=== PATIENT | male | born 1995 | race Asian ===

== ENCOUNTER 2019-01-06 14:57 | Emergency (ER) | payer SELFPAY ==
[~2019-01-06] VITALS: Ht 175.3 cm; Wt 63.5 kg
[2019-01-06 15:22] VITALS: Ht 175.3 cm; Wt 63.5 kg
[2019-01-06 15:33] LABS: BASOPHIL % 0.5 % (0-2); PLATELET COUNT 264 x10^3mcL (130-400); RED CELL DISTRIBUTION WIDTH 12.9 % (11.5-14.5)
[2019-01-06 15:44] LABS: CALCIUM 9.1 mg/dL (8.5-10.1); CARBON DIOXIDE 26.5 mmol/L (21-32); CHLORIDE SERUM 109 mmol/L (98-107); CREATININE SERUM 0.9 mg/dL (0.7-1.3); GFR1 > 60 mL/min; GLUCOSE SERUM 108 mg/dL (74-106); POTASSIUM SERUM 3.2 mmol/L (3.5-5.1); SODIUM SERUM 146 mmol/L (136-145)
[2019-01-06 15:46] LABS: ALBUMIN 3.9 g/dL (3.4-5.0); ALKALINE PHOSPHATASE 86 U/L (46-116); ALT/SGPT 26 U/L (16-63); AST/SGOT 11 U/L (15-37); BILIRUBIN TOTAL 0.9 mg/dL (0.20-1.00); TOTAL PROTEIN, SERUM 6.8 g/dL (6.4-8.2)
[2019-01-06 15:47] LABS: CHOLESTEROL 113 mg/dL (<200)
[2019-01-06 17:09] LABS: AMPHETAMINE QUAL UR POSITIVE (See below)
[2019-01-06 18:35] VITALS: BP 118/69
== END 2019-01-06 18:35 | disposition home or self-care (01) ==
LOC: ED 14:57
PROVIDERS: Specialist
DX: F19.10 Other psychoactive substance abuse, uncomplicated (principal)
CPT/HCPCS: 36415; G0480; J7030

== ENCOUNTER 2019-02-02 00:01 | Inpatient (IN) | payer MEDICAID ==
[~2019-02-02] VITALS: Ht 177.8 cm; Wt 51.7 kg
[2019-02-02 00:17] VITALS: Ht 177.8 cm; Wt 51.7 kg
--- NOTE | 2019-02-02 00:22 | NUR ---
PT BIBA TO BED 5 VIA GURNEY. PER MEDIC FAMILY CALLED 911 FOR PT ALOC, FAMILY REPORTS PT BASELINE IS AAOX4 AND FAMILY UNAWARE OF LAST TIME PT WAS SEEN AT BASELINE. PER MEDIC PT HAS HISTORY OF DRUG USE AND SCHIZOPRENIA AND PT NOT COMPLIANT WITH MEDICATIONS. 20 G IV TO THE L AC STARTED [employer] COORDIN[employer]. BLOOD GLUCOSE IN ROUTE WAS 92. WHEN MEDIC ARRIVED PT ALOC, AWAKE AND UNABLE TO SPEAK. ON ARRIVAL PT AWAKE AND TRACKING WITH EYES. PT DOES NOT RESPOND TO QUESTIONS. WHILE ASSESSING FOR ALERTNESS AND ORIENTATION BUT LAUGHS. PT COOPERATIVE AND FOLLOWS ALL COMMANDS.
[2019-02-02 01:07] LABS: BASOPHIL % 0.7 % (0-2); PLATELET COUNT 252 x10^3mcL (130-400); RED CELL DISTRIBUTION WIDTH 12.1 % (11.5-14.5)
[2019-02-02 01:10] LABS: CALCIUM 9.2 mg/dL (8.5-10.1); CHLORIDE SERUM 107 mmol/L (98-107); CREATININE SERUM 0.6 mg/dL (0.7-1.3); GFR1 > 60 mL/min; GLUCOSE SERUM 91 mg/dL (74-106); POTASSIUM SERUM 3.5 mmol/L (3.5-5.1); SODIUM SERUM 142 mmol/L (136-145)
[2019-02-02 01:15] LABS: ALBUMIN 3.7 g/dL (3.4-5.0); ALKALINE PHOSPHATASE 80 U/L (46-116); ALT/SGPT 12 U/L (16-63); AST/SGOT 7 U/L (15-37); BILIRUBIN TOTAL 0.53 mg/dL (0.20-1.00); TOTAL PROTEIN, SERUM 6.4 g/dL (6.4-8.2)
[2019-02-02 01:29] LABS: FREE T4 1.14 ng/dL (0.76-1.46)
--- NOTE | 2019-02-02 01:45 | NUR ---
PT LAYING IN BED TO POSITION OF COMFORT. PT AWAKE AND REPONDS TO NAME BY OPENING EYES AND LAUGHING. PT LAUGHS INTERMITTENTLY. PT IN SIGHT OF NURSING STATTION. PT HEART RATE NOTED AT 45, DR CULLEN MADE AWARE. NO NEW ORDERS.
--- NOTE | 2019-02-02 02:32 | NUR ---
PT LAYING IN BED SLEEPING WITH BLANKET OVER HIS HEAD. INSTRUCTED PT TO REMOVE BLANKET, PT EASILY AROUSABLE AND FOLLOWED COMMAND.
[2019-02-02 02:42] LABS: AMPHETAMINE QUAL UR NONE DETECTED (See below)
--- NOTE | 2019-02-02 04:02 | NUR ---
PT SLEEPING IN BED, PT EASILY AROUSABLE, RESPIRATIONS EVEN AND UNLABORED.
--- NOTE | 2019-02-02 05:10 | NUR ---
PT LAYING IN BED, SLEEPING. PT EASILY AROUSABLE. PT OFFERED A BREAKFAST AND WATER. PT STARED AND BLINKED. PT THEN COVERED HIS HEAD WITH HIS BLANKET. PT ASKED TO LEFT ARM TO ADJUST BLOOD PRESSURE CUFF, AND FOLLOWED COMMAND.
--- NOTE | 2019-02-02 06:59 | NUR ---
GAVE REPORT TO DR GALVEZ FOR TELE [facility] CONSULT.
--- NOTE | 2019-02-02 07:10 | NUR ---
SOC PSYCHIATRIST CAME ON [facility]-[address]AY [place] & TRIED TO SPEAK W/ PT. PT DROWSY, SLUMPED DOWN IN BED. AROUSED PT, PULLED HIM UP IN BED, BUT HE REMAINED VERY SLEEPY & NON-VERBAL. TRIED TO FURTHER AROUSE PT W/ AN AMMONIA INHALANT WITH LITTLE EFFECT. SOC CALLED DR. HYLTON & INFORMED HIM THEY WERE NOT ABLE TO EVALUATE PT.
--- NOTE | 2019-02-02 07:15 | NUR ---
DR HYLTON NOITIFIED OF PT'S CONSISTENTLY LOW HEART RATE.
--- NOTE | 2019-02-02 07:32 | NUR ---
ASSUMED PATIENT CARE, CONCUR TO PRIOR NURSING ASSESSMENTS.
--- NOTE | 2019-02-02 07:32 | NUR ---
AGENCY DOCUMENTATION DONE BY Staff Name/Title - : CEM BUENO JR/IZAIAH Statwing User ID - : [id number] Agency Name - : [employer] Time Documented - From - : 699 To - : 1929
--- NOTE | 2019-02-02 08:50 | NUR ---
5150 HOLD WRITTEN BY PSYCH FOR BEING GRAVELY DISABLED. PLAN FOR PSYCH PLACEMENT.
--- NOTE | 2019-02-02 10:10 | NUR ---
CALLED [place] DISPATCH TO FIND PHONE NUMBER OF FAMILY WHO CALLED 911. PER DISPATCH, PD WAS SENT TO HIS COMPLEX PER RE[facility] & PD IS THE ONE WHO CALLED FOR MEDICAL TRANSPORT. NO PHONE NUMBER AVAILABLE.
--- NOTE | 2019-02-02 14:49 | NUR ---
PATIENT DARTED OUT OF THE ER, DESPITE BEING CLOSELY WATCHED BY STAFF. MARY HARRISON MADE AWARE BY CHARGE NURSE.
--- NOTE | 2019-02-02 14:53 | NUR ---
PT BROUGHT BACK BY MARY HARRISON, PT REMAINED IN FULL SIGHT OF ER STAFF THE WHOLE TIME, PT GOT JUST PAST CROSS-STREETS BEHIND US, & VÍCTOR, ALONG [facility] F[facility] ON .
--- NOTE | 2019-02-02 15:20 | NUR ---
CARLOS FROM ADMITTING SPOKE TO PT & WAS ABLE TO FIND INSURANCE INFORMATION FOR PT. SHE VERIFIED ADDRESS ON INSURANCE W/ ADDRESS PT WAS PICKED UP FROM. PER CARLOS, PT CAN HEAR HER BUT THEN SIGNS BACK TO HER, SIMPLE ALPHABET SIGNING ONLY.
[2019-02-02 15:40] VITALS: BP 105/59
--- NOTE | 2019-02-02 15:51 | NUR ---
RECEIVED PT FROM ER. PT ADMIT FOR 5150 GRAVELY DISABLE. POLY SUBSTANCE ABUSE. PT IS A/O X4, VERBAL RESPONSIVE, BUT VERY SLOW RESPONSIVE, NEED TO CONSTANTLY RE DIRECT TO QUESTIONS. DENY ANY PAIN OR DISCOMFORT, DENY ANY SUICIDAL IDEA. DENY ANY SUICIDAL ATTEMP. DENY ANY CHEST PAIN OR DISCOMFORT, BOWEL SOUND PRESENT ALL 4 QUADRANTS, NO DISTENTION, NO TENDER. PEDAL PULSE PRESENT BOTH FEET, NO EDEMA, NO IV ACCESS. SITTER AT BEDSIDE, AND ROOM CLOSE TO NURSE STATION. ALL ADLS ASSIST, ALL NEED MET, CALL LIGHT IN REACH, WILL CONTINUE TO MONITOR.
--- NOTE | 2019-02-02 16:00 | NUR ---
RECEIVED REPORT FROM CARY BLISS. PATIENT A/O X4 AND SLOW TO RESPOND. PATIENT ABLE TO ANSWER QUESTIONS AFTER STATING AND REPHRASING QUESTIONS. PATIENT IS A MEDSURG PATIENT. DENIES CHEST PAIN/PRESSURE AT THIS TIME. PULSES PALPABLE NO EDEMA NOTED. BREATHING EVEN AND UNLABORED. NO REPSIRATORY DISTRESS NOTED. DENIES ABD PAIN AND DENIES BURNING/DISCOMFORT WHILE URINATING. NO IV ACCESS AT THIS TIME. ALL QUESTIONS AND CONCERNS ADDRESSED. ALL NEEDS ATTENDED TO. SITTER AT BEDSIDE TO PROMOTE PATIENT SAFETY
--- NOTE | 2019-02-02 16:53 | NUR ---
PATIENT RESTING COMFORTABLY IN BED AT THIS TIME. ID BAND CHANGED DUE TO [place] LAST NAME. PATIENT VERIFIED LAST NAME SPELLED ERIBERTO. ALL NEEDS ATTENDED TO. ALL QUESTIONS AND CONCERNS ADDRESSED. SITTER AT BEDSIDE TO PROMOTE PATIENT SAFETY.
[2019-02-02 18:01] VITALS: BP 98/58
--- NOTE | 2019-02-02 18:36 | NUR ---
PATIENT RESTING COMFORTABLY IN BED AT THIS TIME. NO APPARENT DISTRESS OR DISCOMFORT NOTED. IV PATENT AND INTACT. ALL QUESTIONS AND CONCERNS ADDRESSED SAFETY PRECAUTIONS MAINTAED. ALL NEEDS ATTENDED TO. WILL ENDORSE ALL CARE TO PARTS FACILITATOR NURSE. SITTER AT BEDSIDE TO PROMOTE PATIENT SAFETY.
--- NOTE | 2019-02-02 19:20 | NUR ---
PT RECEIVED FROM THE DAY SHIFT RN. PT HAS FLAT AFFECT AT THIS TIME, SLOW TO RESPOND AND CHOOSES TO REMAIN NON-VERBAL AT THIS TIME. NO ACUTE DISTRESS NOTED. SAFETY AND COMFORT MEASURES MAINTAINED, BED IN LOWEST POSITION, CALL LIGHT WITHIN REACH. SITTER IS AT THE BEDSIDE.
--- NOTE | 2019-02-02 20:35 | NUR ---
Spoke to Georgia BLISS , notified her , still no beds available for placement.
[2019-02-02 21:49] VITALS: BP 93/43
--- NOTE | 2019-02-02 23:59 | NUR ---
PT IS RESTING IN BED WITH EYES CLOSED AT THIS TIME. NO ACUTE DISTRESS NOTED. PT STILL REMAINS NON-VERBAL, PT RESPONDS TO HIS NAME, BUT REFUSES TO ANSWER QUESTIONS DIRECTED TOWARDS HIM. SITTER AT THE BEDSIDE, SAFETY AND COMFORT MEASURES MAINTAINED, BED IN LOWEST POSITION, CALL LIGHT WITHIN REACH.
--- NOTE | 2019-02-03 01:43 | NUR ---
PT IS AWAKE AND IN BED WITH EYES OPEN. PT IGNORES QUESTIONS DIRECTED TOWARDS HIM. PT REFUSED IV INSERTION. EXPLAINED BENEFITS AND RISKS OF IV INSERTION, PT REFUSED TO ANSWER QUESTIONS. NO ACUTE DISTRESS NOTED. SAFETY AND COMFORT MEASURES MAINTAINED, BED IN LOWEST POSITION, CALL LIGHT WITHIN REACH. SITTER IS AT THE BEDSIDE.
--- NOTE | 2019-02-03 03:34 | NUR ---
PT IS RESTING IN BED WITH EYES CLOSED. PT IS EASILY AWAKEN WITH VERBAL STIMULUS. PT IS ABLE TO RESPOND TO HIS NAME, BUT WILL NOT ANSWER QUESTIONS DIRECTED TOWARDS HIM. NO S/S OF PAIN AT THIS TIME. SITTER AT THE BEDSIDE. SAFETY AND COMFORT MEASURES MAINTAINED, BED IN LOWEST POSITION, CALL LIGHT WITHINN REACH.
--- NOTE | 2019-02-03 04:45 | NUR ---
PT IS UNDER THE COVERS RESTING IN BED, PT EASILY AWAKEN WITH VERBAL STIMULUS, PT IS STILL CHOOSING TO BE NON-VERBAL BUT WILL ANSWER TO HIS NAME. PT REFUSED IV ACCESS, SITTER AT THE BEDSIDE, NO COMPLAINT OF PAIN AT THIS TIME. SAFETY AND COMFORT MEASURES MAINTAINED, BED IN LOWEST POSITION, CALL LIGHT WITHIN REACH.
--- NOTE | 2019-02-03 05:14 | NUR ---
PT HAS SLEPT IN INTERMITTENT INTERVALS AT THIS TIME. PT HAS BEEN NON-VERBAL THROUGHOUT THE SHIFT. PT IGNORES QUESTIONS DIRECTED TOWARDS HIM. PT WILL RESPOND WITH GESTURES TO HIS NAME BUT REFUSES TO PARTICIPATE WITH QUESTIONS. NO IV ACCESS AT THIS TIME. PT REFUSED IV INSERTION, SITTER AT THE BEDSIDE, SAFETY AND COMFORT MEASURES MAINTAINED, BED IN LOWEST POSITION, CALL LIGHT WITHIN REACH, WILL ENDORSE CONTINUITY OF CARE TO THE ONCOMING RN.
[2019-02-03 05:46] VITALS: BP 91/59
[2019-02-03 06:21] LABS: PLATELET COUNT 222 x10^3mcL (130-400); RED CELL DISTRIBUTION WIDTH 13.3 % (11.5-14.5)
[2019-02-03 06:27] LABS: CARBON DIOXIDE 26.2 mmol/L (21-32); CHLORIDE SERUM 109 mmol/L (98-107); CREATININE SERUM 0.7 mg/dL (0.7-1.3); GFR1 > 60 mL/min; GLUCOSE SERUM 87 mg/dL (74-106); MAGNESIUM 2.3 mg/dL (1.8-2.4); POTASSIUM SERUM 3.9 mmol/L (3.5-5.1); SODIUM SERUM 144 mmol/L (136-145)
--- NOTE | 2019-02-03 07:43 | NUR ---
HANDOFF REPORT RECEIVED. PATIENT AWAKE WITH FACE HALF COVERED WITH BLANKET AND DIS NOT RESPOND TO GREETINGS OR QUESTION. RR 18. NOT IN APPARRENT DISTRESS. SITTER AT BEDSIDE.
[2019-02-03 09:30] VITALS: BP 91/60
--- NOTE | 2019-02-03 12:16 | NUR ---
SITTING BY BEDSIDE. NOT IN ANY DISTRESS.
[2019-02-03 16:01] VITALS: BP 94/63
--- NOTE | 2019-02-03 16:03 | NUR ---
UNDER HIS BLANKET AND REFUSING TO RESPOND TO GREETINGS. MOVES SELF IN BED.
[2019-02-03 16:42] VITALS: BP 94/63
--- NOTE | 2019-02-03 19:10 | NUR ---
RECEIVED PT SITTING AT THE EDGE OF THE BED WRITING ON THE PAPER.NON VERBAL.HE KNODS TO RESPOND.NO SOB NOTED. NO S/S OF PAIN AT THIS TIME.NO IV SITE,PT REFUSES. SITTER AT BEDSIDE FOR SAFETY.SKIN ARE INTACT.BED IN LOWEST POSITION,FIFI LIGHT WITHIN REACH. WILL CONTINUE TO MONITOR.
[2019-02-03 20:27] VITALS: BP 100/58
--- NOTE | 2019-02-04 01:55 | NUR ---
At this time still no vacancy , Shannan BLISS made aware, will continue to make calls for placment.
--- NOTE | 2019-02-04 05:04 | NUR ---
PT REMAINED ASLEEP.NO SOB NOTED. NO INDICATION OF PAIN. SITTER AT BEDSIDE FOR SAFETY. BED IN LOWEST POSITION,CALL LIGHT WITHIN REACH. WILL CONTINUE TO MONITOR.
[2019-02-04 05:53] VITALS: BP 94/49
--- NOTE | 2019-02-04 06:09 | NUR ---
HR: 43. ASYMTOMATIC.DENIES ANY DISCOMFORT.WILL CONTINUE TO MONITOR.
--- NOTE | 2019-02-04 07:21 | NUR ---
CARE ENDORSED TO DAY NURSE LUIS FERNANDO.
--- NOTE | 2019-02-04 07:48 | NUR ---
RECEIVED PATIENT FROM IZAIAH HARDEN. PATIENT RESTING IN BED. NOT SPEAKING AT THIS TIME. SITTER AT BEDSIDE. WILL CONTINUE TO MONITOR FOR PAIN OR DISCOMFORT. PATIENT ACROSS FROM NURSES STATION, AWAITING PLANS FOR PLACEMENT. CALL LIGHT IN REACH.
--- NOTE | 2019-02-04 09:56 | NUR ---
DR MCKEONTANI IN TO EVALUATE PATIENT. NEW MEDICATION ORDERS PLACED. TANK TERMINAL GAUGER ABI ALSO IN TO SPEAK WITH PATIENT ABOUT PLAN OF CARE. PATIENT GESTURES UNDERSTANDING. CALL LIGHT IN REACH, SITTER AT BEDSIDE.
--- NOTE | 2019-02-04 12:28 | NUR ---
Packet faxed to [facility] for review.
--- NOTE | 2019-02-04 12:32 | NUR ---
Followed up with phillip Dominique/ashu Lewis. No beds at this time.
--- NOTE | 2019-02-04 12:38 | NUR ---
Called Beranrda Finney, s/w [facility]. No beds, facility at capacity.
--- NOTE | 2019-02-04 12:43 | NUR ---
Called Jeff Pham s[facility]. No beds.
--- NOTE | 2019-02-04 12:47 | NUR ---
PATIENT SEATED UP TO BED, EATING LUNCH TRAY. NO COMPLAINTS AT THIS TIME. SITTER AT BEDSIDE. CALL LIGHT IN REACH, PATIENT ACROSS FROM NURSES STATION.
--- NOTE | 2019-02-04 13:03 | NUR ---
Packet faxed to [facility] for review.
--- NOTE | 2019-02-04 13:11 | NUR ---
Packet faxed to [facility] at [facility] for review.
--- NOTE | 2019-02-04 13:16 | NUR ---
1. Recommend Ensure Enlive BID. 2. Recommend continuing regular diet.
--- NOTE | 2019-02-04 13:16 | NUR ---
Initial Nutrition Assessment: 216/B BARRY WEI IA HR Dx: gravely disabled, polysubstance abuse, 5150 PMHx: schizophrenia, depression PSHx: unknown Labs: CL 109H, (02/02) AST 7L, ALT 12L Meds: Ativan, Zofran, tylenol Diet: Regular PO Intake: (02/03) dinner 100%, snack- sandwich, (02/02) dinner 50% Ht: 177.8 cm (70") Wt: 51.7 kg (113#) BMI: 16.4 kg/m2 Bed scale: 52.3 kg IBW: 166# (75.4 kg) %IBW: 68 UBW: patient unable to recollect Age: 24/M Food Allergies: NKFA Skin: intact Cm: 22 Edema: none GI: Last BM: 02/02 Trigger: appears underweight/malnourished Per H&P, Pt is a 24-year old male who was brought in the ER 02/01/19 by EMS for altered mental status. Patient unable to give any meaningful history patient gives blank stares and does not want to speak. RDN Visit (02/04): Patient said that he ate most of his breakfast this morning and has good appetite. Per WASTE COLLECTOR, Patient stared at his breakfast for an hour before consuming it. Called STRAWHAT SIZER Natalie and discussed recommendations. STRAWHAT SIZER agreed to add ensure enlive BID. Problem with: N/V/D/C: none Problems with: Chewing/Swallowing: none Current appetite: good Recent wt change: unable to access %wt change: N/A Vitamin/Supplement use: Vitamin C Special diet at home: regular Physical activity: walking Nutrition education given: not appropriate as patient is unable to comprehend due to psych condition. Food-drug interactions: Ativan- limit caffeine to <400-500 mg/day Education given: no Estimated Nutritional Needs Based on actual body weight 52.3 kg Energy: 9040-6048 kcal/d (35-40 kcal/kg) - underweight Protein: 52.3-62.7 g/d (1.0-1.2 g/kg) - preserve LBM Fluid: 3661-6239 ml/d (1 ml/kcal) or per doctor Nutrition Diagnosis 1. Underweight related to unintentional weight loss as evidenced by BMI 16.4 kg/m2 Intervention 1. Recommend Ensure Enlive BID. 2. Recommend continuing regular diet. Monitor/Evaluate Goal: PO intake at least 75% of estimated needs Monitor: PO intake, Labs, GI function F/U in 3-5 days as moderate risk 02/07-
[2019-02-04 16:30] VITALS: BP 102/63
--- NOTE | 2019-02-04 18:11 | NUR ---
PATIENT SEATED IN BED. NO COMPLAINTS OF PAIN OR DISCOMFORT OR SI. SITTER AT BEDSIDE. WILL ENDORSE TO ONCOMING NURSE. CALL LIGHT IN REACH AT THIS TIME.
--- NOTE | 2019-02-04 19:10 | NUR ---
RECEIVED REPORT FROM LUIS FERNANDO BLISS. ASSUMING ALL CARE
--- NOTE | 2019-02-04 19:35 | NUR ---
RECEIVED PT LAYING IN BED. PT IS A/OX4. SPEECH IS CLEAR. ABLE TO MAKE NEEDS KNOWN. DENIES GILLIS. PT NOTED WITH FLAT AFFECT. EENT FREE OF DISCHARGE. ORAL MUCOSA PINK AND MOIST. NO JVD NOTED. BREATHING IS E/U ON RA. LUNGS SOUND CLEAR BILAT. SYMMETRICAL CHEST EXPANSION NOTED. S1/S2 HEART SOUNDS AUSCULTATED. CHEST WALL EQUAL AND SYMMETRICAL. DENIES ANY S/S OF CP. PALPABLE PULSE X4 EXTREMITIES. SKIN IS WARM AND DRY. PT REFUSED IV ACCESS. CAP REFILL < 3 SECS. PT IS AMBULATORY. NO JOINT SWELLING/DEFORMITY NOTED. PT IS ON REGULAR DIET. NO N/V NOTED. ABD IS SOFT/FLAT, NONTENDER TO PALPATION. BOWEL SOUNDS ACTIVE X4 QUADRANTS. NO BM NOTED. PT VOIDS FREELY VIA URINAL. SKIN IS INTACT. PT ABLE TO REPOSITION SELF INDENPENDENTLY. PT IS CALM. FLAT AFFECT. DENIES ANY SI/HI. SITTER AT BEDSIDE. BED IN LOW POSITION. CALL LIGHT IN REACH. WILL CONT TO MONITOR
[2019-02-04 21:33] VITALS: BP 111/61
--- NOTE | 2019-02-05 00:24 | NUR ---
PT IS SLEEPING, EASILY ASOUBLE. RISE AND FALL OF CHEST NOTED. BREATHING IS E/U ON RA. SITTER AT BEDSIDE. BED IN LOW POSITION. CALL LIGHT IN REACH. WILL CONT TO MONITOR
--- NOTE | 2019-02-05 02:55 | NUR ---
PT IS SLEEPING, EASILY AROUSABLE. BREATHING IS E/U ON RA. NO S/S OF ACUTE DISTRESS NOTED. SITTER AT BEDSIDE. BED IN LOW POSITION. CALL LIGHT IN REACH. WILL CONT TO MONITOR
[2019-02-05 05:43] VITALS: BP 107/51
--- NOTE | 2019-02-05 05:49 | NUR ---
No placement found , will endorsed to AM shift to continue to look for placement.
--- NOTE | 2019-02-05 05:55 | NUR ---
PT IS AWAKE/ALERT. SITTER AT BEDSIDE. BREATHING IS E/U ON RA. NO S/S OF ACUTE DISTRESS NOTED. SITTER AT BEDSIDE. BED IN LOW POSITION. CALL LIGHT IN REACH. WILL CONT TO MONITOR
--- NOTE | 2019-02-05 07:10 | NUR ---
REPORT GIVEN TO BRIANNA BLISS. ALL QUESTIONS/CONCERNS ADDRESSED AT THIS TIME. ENDORSING ALL CARE
--- NOTE | 2019-02-05 07:45 | NUR ---
PATIENT SLEEPING IN BED, AROUSABLE. DENIES PAIN AT THIS TIME. NO ACUTE DISTRESS NOTED. PATIENT IS A/OX4, FLAT AFFECT NOTED, NON VERBAL AT TIMES. PATIENT DENEIS SUCIDAL THOUGHTS. NO IV ACCESS NOTED, SPRIGGER ABI AWARE. CALL LIGHT WITHIN REACH, BED IN LOW POSITION, SITTER AT BEDSIDE FOR SAFETY PRECAUTION. WILL CONTINUE TO MONITOR FOR CHANGES.
--- NOTE | 2019-02-05 07:50 | NUR ---
PATIENT SITTING UP AT BEDSIDE, NO ACUTE DISTRESS NOTED. PATIENT IS A/0X4, DENIES GILLIS. SEIZURE PRECAUTIONS IN PLACE. NO ACUTE DISTRESS NOTED. PATIENT DENEIS SOB, ON 2L NC. ABDOMEN APPEARS FIRM/DISTENDED, BS ACTIVE X4. PATIENT DENIES PAIN. NS IV INFUSING TO LAC AT 40ML/HR, IV SITE CDI & PATENT, NO S/S OF INFILTRATION. CALL LIGHT WITHIN REACH, BED IN LOW POSITION, WILL CONTINUE TO MONITOR PATIENT.
[2019-02-05 08:48] VITALS: BP 93/49
--- NOTE | 2019-02-05 09:02 | NUR ---
PATIENT WAS UP AND AMBULATING TO THE BATHROOM AT THIS TIME.HERBARIUM CURATOR AT SIDE FOR SAFETY.
--- NOTE | 2019-02-05 09:47 | NUR ---
PATIENT SLEEPING IN BED, AROUSABLE. DENIES PAIN AT THIS TIME. NO ACUTE DISTRESS NOTED. PATIENT IS A/OX4, FLAT AFFECT NOTED, NON VERBAL AT TIMES. PATIENT DENEIS SUCIDAL THOUGHTS. NO IV ACCESS NOTED, INTERNET MARKETING STRATEGIST ABI AWARE. CALL LIGHT WITHIN REACH, BED IN LOW POSITION, SITTER AT BEDSIDE FOR SAFETY PRECAUTION. WILL CONTINUE TO MONITOR FOR CHANGES.
--- NOTE | 2019-02-05 12:40 | NUR ---
Contacted [facility], chart still in review. No eta on bed given
--- NOTE | 2019-02-05 17:30 | NUR ---
PATIENT IS SITTING UP IN BED. PATIENT WAS WONDERING IF HE WAS ON A 5150 HOLD, PATIENT APPEARS TO BE CONVERSING VERY WELL, AND EXPLAINING WHAT HAPPENED AT HOME AND HOW HE GOT HERE. PATIENT IS CALM AND COMPLIANT. ALL QUESTIONS AND CONCERNS ADDRESSED. WILL CONTINUE TO MOITOR. CALL LIGHT WITHIN REACH, BED IN LOW POSITION. SITTER AT BEDSIDE FOR SAFETY.
[2019-02-05 17:57] VITALS: BP 118/75
--- NOTE | 2019-02-05 18:58 | NUR ---
PATIENT SLEEPING IN BED, NO ACUTE DISTRESS NOTED. NO ACUTE CHANGES THROUGH OUT SHIFT, PATIENT IS STABLE. DENIES SI, HCN. CALL LIGHT WITHIN REACH, BED IN LOW POSITION, SITTER AT BEDSIDE FOR SAFETY PRECAUTION. WILL ENDORSE REPORT TO NIGHT NURSE.
--- NOTE | 2019-02-05 19:15 | NUR ---
Florina with [facility] day shift has refaxed patient chart to contracted psych facilities [facility], [facility], [facility], [facility], [facility]. Upon reading patients 5150, it has on 02/05/19 @ 0810. Patient will need a psych re evaluation.
--- NOTE | 2019-02-05 19:30 | NUR ---
RECEIVED REPORT FROM DAY SHIFT RN. PT RESTING IN BED WITH EYES CLOSED. EASILY AROUSABLE WITH VERBAL STIMULI. NO SOB ON ROOM AIR. NO C/O PAIN. DENIES SUICIDAL IDEATION AT THIS TIME. PT REFUSING TO HAVE IV ACCESS. SAFETY MEASURES IN PLACE. BED IN LOWEST POSITION. SIDE RAILS UP X2. INSTRUCTED PT TO USE THE CALL LIGHT FOR ASSISTANCE. CALL LIGHT WITHIN REACH. SITTER AT BEDSIDE.
[2019-02-05 20:15] VITALS: BP 104/50
--- NOTE | 2019-02-06 00:44 | NUR ---
PT RESTING WITH EYES CLOSED. NO DISTRESS NOTED. CALL LIGHT WITHIN REACH. SITTER AT BEDSIDE.
--- NOTE | 2019-02-06 06:01 | NUR ---
PT SLEPT AT LONG INTERVALS. NO ACUTE DISTRESS NOTED. SAFETY MEASURES MAINTAINED. DENIES HAVING THOUGHTS OF HARMING SELF OR OTHERS. PT REMAINED CALM AND COOPERATIVE. CALL LIGHT WITHIN REACH. SITTER AT BEDSIDE. WILL ENDORSE CONTINUITY OF CARE TO ONCOMING RN.
--- NOTE | 2019-02-06 07:30 | NUR ---
PATIENT RESTING IN BED, NO ACUTE DISTRESS NOTED AT THIS TIME. PATIENT DENIES SUICIDIAL IDEATION, DENIES HCN. PATIENT IS CONVERSING MORE, PATIENT IS AWARE OF PLAN OF CARE. PATIENT IS ON 5150 HOLD, SITTER AT BEDSIDE FOR SAFETY PRECAUTION. PATIENT DENIES PAIN. NO IV ACCESS NOTED, MD AWARE. CALL LIGHT WITHIN REACH, BED IN LOW POSITION, WILL CONTINUE TO MONITOR FOR CHANGES.
[2019-02-06 09:30] VITALS: BP 140/62
--- NOTE | 2019-02-06 10:52 | NUR ---
Received updated 5150 via fax. Packet faxed to the following facilities: [facility]: S/W Mira, states they will review packet and follow up if they can accomodate pt. [facility]: S/W Kristy, states no beds, no projected openings today, requested not to fax packet and to try back next shift. [facility]: S/W [place], states no beds at this time. Packet on file for review. [facility]: No beds, updated packet faxed for review/waitlist. Will continue to look for placemet. will contact with any updates.
--- NOTE | 2019-02-06 13:00 | NUR ---
PATIENT IS SITTING UP IN BED, EATING & CONVERSING WITH ROOM MATE. PATIENT IS CALM & PLESANT AT THIS TIME. PATIENT DENIES SUICIDAL IDEATION & HCNS. CALL LIGHT WITHIN REACH, BED IN LOW POSITION, WILL CONTINUE TO MONITOR PATIENT.
[2019-02-06] MEDS ORDERED: REM15 PO (14:06)
[2019-02-06] MEDS ORDERED: RISPERIDONE2 M1 PO (14:06)
[2019-02-06 17:10] VITALS: BP 140/62
--- NOTE | 2019-02-06 17:19 | NUR ---
PATIENT STABLE FOR DISCHARGE HOME. DISCHARGE INSTRUCTIONS, PRESCRIPTION, BELONGINGS LIST AND EDUCATION REVIEWED WITH PATIENT, PATIENT VERBALIZED UNDERSTANDING TO FOLLOW UP WITH PCP AND WILL RECEIVE A T.C FROM KESHA GOMEZ RN TO HAVE A TELEPHONE INTERVIEW PRIOR TO SCHEDULING APPOINTMENT. ALL QUESTIONS AND CONCERNS ADDRESSED. ID BANDS REMOVED, NO IV ACCESS. PATIENT ASSISTED DOWN TO LOBBY ACCOMPANIED BY STAFF, ALL PERSONAL BELONGINGS SENT HOME WITH PATIENT.
== END 2019-02-06 17:19 | disposition home or self-care (01) | DRG 750 ==
LOC: ED 00:01 → MU 14:13 → EDBEDREQ 14:14 → MU 15:24
PROVIDERS: Emergency Medicine; ADMIT Internal Medicine
DX: F20.9 Schizophrenia, unspecified (principal); F32.3 Major depressive disorder, single episode, severe with psychotic features; R00.1 Bradycardia, unspecified; F12.10 Cannabis abuse, uncomplicated; Z91.14 Patient's other noncompliance with medication regimen; F15.10 Other stimulant abuse, uncomplicated
CPT/HCPCS: 84439; G0378; G0480